=== PATIENT | male | born 1985 | race Caucasian/White ===

== ENCOUNTER 2018-06-09 16:21 | Outpatient (CLI) | payer OTHER ==
--- NOTE | 2018-06-10 10:06 | XRAY Report ---
Reason: R FOOT PAIN X 6 YRS,CENTERED 2ND METATARSAL HEAD Procedure Date: 06/09/2018 Accession Number: [id number] / [id number] Procedure: XR - Foot 3 View RT CPT Code: FULL RESULT: EXAM: RIGHT FOOT RADIOGRAPHY EXAM DATE: 06/09/2018 04:33 PM. CLINICAL HISTORY: Right foot pain x 6 years, centered 2nd metatarsal head. COMPARISON: None. TECHNIQUE: 3 views. FINDINGS: Bones: Normal. No fractures or bone lesions. Joints: Normal. No subluxations. Soft Tissues: Normal. No soft tissue swelling. IMPRESSION: Normal foot radiography. RADIA
== END 2018-06-09 16:22 | disposition home or self-care (01) ==
LOC: DI 16:21
PROVIDERS: ATTEND Podiatrist
DX: M79.671 Pain in right foot (principal)

== ENCOUNTER 2021-04-02 15:29 | Emergency (ER) | payer OTHER ==
--- NOTE | 2021-04-02 16:49 | Ultrasound Report ---
PROCEDURE: Duplex Ext Veins Left INDICATIONS: leg pain TECHNIQUE: Real-time imaging, as well as color and pulse Doppler interrogation, were performed of the lower extr emity deep veins from the inguinal ligament to the popliteal fossa. COMPARISON: None. FINDINGS: The deep veins are normally compressible, and free of intraluminal thrombus. Color and pu lse Doppler demonstrate normal phasic intraluminal flow. There is normal augmentation response to di stal compression maneuver. 2.6 x 0.7 x 3.3 cm sonographically heterogeneous fluid collection noted in the soft tissues anterior and superior to the left knee likely represents hematoma, however infected fluid collection cannot be differentiated by imaging. IMPRESSION: No evidence of deep vein thrombosis involving the left lower extremity. Reviewed by: Suzi Krause MD, PhD on 04/02/2021 4:47 PM PST Approved by: Suzi Krause MD, PhD on 04/02/2021 4:47 PM PST Station ID: [id number]
--- NOTE | 2021-04-02 18:07 | ED Physician Documentation ---
History of Present Illness - Stated complaint Stated Complaint: swollen hot left leg - Chief complaint Chief Complaint: Ext Problem - Additonal information Additional information: 35-year-old male comes to the emergency department for evaluation of acute left knee swelling as well as calf swelling. He reports that about 5 to 7 days ago he began noticing that his left knee had some fluid and swelling around it. Was mildly warm to the touch but not tender. He did follow-up with his primary care doctor they did attempt to do a joint arthrocentesis but were not successful. Over time he has developed some swelling in the lower leg. He denies any knee pain, calf pain, fevers, night sweats, weight loss. No history of DVT or cancer. He does practice jujitsu and is often kneeling though he does not think that that is the cause of the knee swelling denies any trauma. He has a normal gait. Review of Systems Constitutional: denies: Fever, Chills Eyes: reports: Reviewed and negative Ears: reports: Reviewed and negative Throat: reports: Reviewed and negative Cardiac: reports: Reviewed and negative Respiratory: reports: Reviewed and negative GI: reports: Reviewed and negative : reports: Reviewed and negative Skin: reports: Reviewed and negative Musculoskeletal: reports: Joint swelling. denies: Joint pain, Pain with weight bearing Neurologic: reports: Reviewed and negative PD PAST MEDICAL HISTORY - Present Medications Home Medications: Ambulatory Orders Medication Instructions Recorded Confirmed No Known Home Medications 04/02/21 04/02/21 - Allergies Allergies/Adverse Reactions: Allergies Allergy/AdvReac Type Severity Reaction Status Date / Time Penicillins Allergy Hives Verified 04/02/21 15:37 PD ED PE NORMAL - General General: Alert and oriented X 3, No acute distress, Other (No lymphadenopathy appreciated in the inguinal chain. No abdominal tenderness elicited.) - HEENT HEENT: PERRL - Cardiac Cardiac: RRR, No murmur - Abdomen Abdomen: Normal bowel sounds, Soft, Non tender, Non distended - Back Back: No CVA TTP, No spinal TTP - Derm Derm: Normal color, Warm and dry, No rash - Extremities Extremities: No deformity, No tenderness to palpate, Normal ROM s pain, No calf tenderness / cord, Other (Mild swelling of the knee with effusion palpable bilaterally. No laxity. No micromotion tenderness. Normal flexion extension. Patient has a normal gait. 2+ DP pulse.). No: No edema - Neuro Neuro: Alert and oriented X 3 Eye Opening: Spontaneous Motor: Obeys Commands Verbal: Oriented GCS Score: 15 - Psych Psych: Normal mood Results - Vitals Vitals: Vital Signs - 24 hr 04/02/21 04/02/21 15:34 17:49 Temperature 36.4 C L 36.6 C Heart Rate 75 77 Respiratory 16 18 Rate Blood Pressure 151/79 H 133/71 H O2 Saturation 100 99 Oxygen O2 Source Room air - Rads (name of study) US DVT Radiology: Final report received (No acute deep vein thrombosis) left knee Radiology: EMP read contemporaneously (No fracture or dislocation. Minimal joint effusion medially) PD MEDICAL DECISION MAKING - ED course Complexity details: reviewed results, re-evaluated patient, considered differential, d/w patient ED course: 35-year-old male presents the emergency department for evaluation of left leg swelling. Began as swelling in the knee about 1 week ago. No pain or fevers. He did see his primary care doctor and they attempted arthrocentesis. We do not know the results. However since then he has had swelling below the knee into his calf but no calf pain. By Wells criteria he is low risk for DVT. Ultrasound does not show any deep vein thrombus today. Patient is worried about the swelling in his knee. He practices jujitsu and frequently kneels. He denies any known trauma. The exam of the knee is very benign. No laxity or tenderness noted he has a normal gait. Given lack of fevers or micromotion tenderness my suspicion for a septic arthritis is exceedingly low. X-ray was without acute findings. I recommended patient to have close follow-up with his primary care provider. He may benefit from referral to physical therapy and/or orthopedics if the effusion does not improve. I did recommend Harish wrap or knee sleeve. Also recommended Tylenol or ibuprofen. Emergent return precautions were discussed. Departure - Departure Disposition: 01 Home, Self Care Clinical Impression: Swelling of left knee joint, Swelling of left lower extremity Condition: Stable Record reviewed to determine appropriate education?: Yes Instructions: ED Effusion Knee Comments: Brice mancini were seen today in the emergency department for swelling of the knee and left lower leg. The x-ray of the knee does not show any worrisome findings. The ultrasound of your lower extremity did not show any blood clots. I suspect that you have swelling of the knee otherwise known as an effusion from kneeling while practicing [employer]. You would benefit from elevating the leg at night. He may also benefit from a mild compressive wrap such as an Harish wrap or a knee sleeve. I would like you to have close follow-up with your primary care doctor. If the effusion does not resolve over the next week then I would recommend referral to orthopedics and/or referral to physical therapy. If at any point you develop severe knee pain, have any fevers, or red streaking in your legs then please return immediately to the ER for 2nd evaluation.
[2021-04-02 18:38] VITALS: BP 122/70
--- NOTE | 2021-04-02 19:03 | XRAY Report ---
PROCEDURE: Knee 3 View LT INDICATIONS: effusion; no trauma TECHNIQUE: 3 views of the left knee(s) were acquired. COMPARISON: None. FINDINGS: BONES/JOINT: No acute, displaced fracture or dislocation. Small suprapatellar joint effusion. SOFT TISSUES: Diffuse edema. IMPRESSION: 1.No acute osseous abnormality. Reviewed by: Jaya Doll MD on 04/02/2021 7:01 PM [facility] Approved by: Jaya Doll MD on 04/02/2021 7:01 PM PST Station ID: [id number]
== END 2021-04-02 18:38 | disposition home or self-care (01) ==
LOC: ED 15:29
DX: M25.462 Effusion, left knee (principal)
CPT/HCPCS: 99282; 99284

== ENCOUNTER 2022-08-31 08:00 | Outpatient (CLI) | payer OTHER ==
--- NOTE | 2022-09-01 15:53 | XRAY Report ---
PROCEDURE: Hand 3 View LT INDICATIONS: LEFT HAND INJURY TECHNIQUE: 3 views of the hand(s) acquired. COMPARISON: None. FINDINGS: Bones: There is a mildly displaced oblique fracture within the fourth metacarpal shaft. There is sub sequent overall shortening of the fourth digit. Soft tissues: No suspicious soft tissue calcifications or masses. IMPRESSION: Mildly displaced fourth metacarpal shaft fracture. Reviewed by: Danni Calvillo MD on 09/01/2022 3:51 PM PDT Approved by: Danni Calvillo MD on 09/01/2022 3:51 PM PDT Station ID: [id number]
== END 2022-08-31 23:59 | disposition home or self-care (01) ==
LOC: DI.S 08:00
PROVIDERS: ATTEND Registered Nurse
DX: S62.325A Displaced fracture of shaft of fourth metacarpal bone, left hand, initial encounter for closed fracture (principal)

== ENCOUNTER 2022-10-12 08:00 | Outpatient (CLI) | payer OTHER ==
--- NOTE | 2022-10-12 13:32 | XRAY Report ---
PROCEDURE: Finger(s) LT INDICATIONS: LEFT 4TH MC FRACTURE TECHNIQUE: AP hand, 2 views of the 4th finger(s) acquired. COMPARISON: X-ray left hand, 08/31/2022. FINDINGS: Bones: Again noted is mildly displaced oblique fracture of the proximal fourth phalangeal shaft. Ali gnment is stable. No suspicious bony lesions. Soft tissues: No suspicious soft tissue calcifications or masses. IMPRESSION: Mildly displaced oblique fracture of the proximal fourth phalangeal shaft with stable alignment. No v isible bridging callus. Reviewed by: Axel Resendiz MD on 10/12/2022 12:10 PM PDT Approved by: Axel Resendiz MD on 10/12/2022 12:10 PM PDT Station ID: [id number]
== END 2022-10-12 23:59 | disposition home or self-care (01) ==
LOC: DI.WOS 08:00
PROVIDERS: ATTEND Orthopaedic Surgery
DX: S62.615D Displaced fracture of proximal phalanx of left ring finger, subsequent encounter for fracture with routine healing (principal)

== ENCOUNTER 2023-06-07 07:00 | Outpatient (CLI) | payer OTHER | END 2023-06-07 23:59 | disposition home or self-care (01) | LOC: LAB.S 07:00 | PROVIDERS: ATTEND Nurse Practitioner | DX: K13.70 Unspecified lesions of oral mucosa (principal) | CPT/HCPCS: 87070; 87205 ==

== ENCOUNTER 2023-06-28 09:07 | Emergency (ER) | payer OTHER ==
--- NOTE | 2023-06-28 09:51 | ED Physician Documentation ---
PD HPI HEENT - Stated complaint Stated Complaint: LUMP IN MOUTH - Chief complaint Chief Complaint: Heent - History obtained from History obtained from: Patient - Additional information Additional information: Patient is a 37-year-old male presenting for evaluation of a swelling to his mouth that has been present for at least a month. Patient states he has been to the walk-in clinic for this initially when it started. He reports they lanced it with a scalpel and took a culture and started him on clindamycin. He states that it did get better when it was lanced and was drained but then has recurred. He denies any discomfort. He called back to the walk-in clinic when it started to grow in size again and was advised to use an [id number] topical medication which he is unsure of the name of. He states that this did not help at all. He occasionally smokes tobacco but does not regularly use tobacco products. Denies any difficulty with swallowing. No fevers. No abnormal drainage. Denies issues with dentition. Review of Systems Constitutional: denies: Fever Nose: denies: Congestion Throat: denies: Dental pain / toothache, Sore throat PD PAST MEDICAL HISTORY - Past Medical History Past Medical History: No - Past Surgical History Past Surgical History: No - Present Medications Home Medications: Ambulatory Orders Medication Instructions Recorded Confirmed No Known Home Medications 04/02/21 06/28/23 - Allergies Allergies/Adverse Reactions: Allergies Allergy/AdvReac Type Severity Reaction Status Date / Time Penicillins Allergy Hives Verified 06/28/23 09:23 - Social History Does the pt smoke?: No Smoking Status: Never smoker Does the pt drink ETOH?: Yes Does the pt have substance abuse?: Yes Substance Use and Type: Marijuana - Immunizations Immunizations are current?: Yes - POLST Patient has POLST: No PD ED PE NORMAL - General General: Alert and oriented X 3, No acute distress, Well developed/nourished - HEENT HEENT: Atraumatic, Moist mucous membranes - Neck Neck: Supple, no meningeal sign - Respiratory Respiratory: No respiratory distress - Derm Derm: Warm and dry - Neuro Neuro: Normal speech PD ED PE EXPANDED - HEENT HEENT Visual: 1 - swelling (almond size area of cystic like swelling, nontender, no redness) Results - Vitals Vitals: Vital Signs - 24 hr 06/28/23 06/28/23 09:19 09:58 Temperature 36.0 C L Heart Rate 57 L 66 Respiratory 20 14 Rate Blood Pressure 152/82 H 142/84 H O2 Saturation 95 100 Oxygen O2 Source Room air PD Medical Decision Making - ED course ED course: Patient is a 37-year-old male presenting for evaluation of a lesion noted to the buccal mucosa for at least the past month. Patient states it was lanced and drained at the walk-in clinic and cultures which I am able to see here showed mixed oral lynsey.Patient states that has reoccurred. Discussed with Dr. Grewal, [facility], who graciously agrees to see the patient in his office today. Patient is quite agreeable to this and very happy to see a specialist for this. I had otherwise offered to incise and drain the fluid again for another culture but patient is comfortable with going directly to Dr. Allen's office. Departure - Departure Disposition: 01 Home, Self Care Clinical Impression: Lump in mouth Condition: Stable Follow-Up: CHINEDU GREWAL [Physician No Access] - (PLEASE GO DIRECTLY TO DR. GREWAL OFFICE. HE IS EXPECTING YOU TODAY.) Comments: Please go directly to Dr. Chinedu Grewal office. He is expecting you and is a specialist. If for some reason you are not able to see Dr. Allen or having any worsening symptoms please return to the emergency department. Forms: PCP List Discharge Date/Time: 06/28/23 09:58
[2023-06-28 10:03] VITALS: BP 142/84; O2SAT 100
== END 2023-06-28 09:58 | disposition home or self-care (01) ==
LOC: ED 09:07
DX: K13.70 Unspecified lesions of oral mucosa (principal)
CPT/HCPCS: 99282; 99283

== ENCOUNTER 2023-09-25 07:00 | Outpatient (CLI) | payer OTHER ==
--- NOTE | 2023-09-26 22:28 | XRAY Report ---
PROCEDURE: Tib/Fib LT INDICATIONS: STRAIN OF TENDON LOWER LEFT LEG TECHNIQUE: 4 views of the tibia and fibula were acquired. COMPARISON: None. FINDINGS: Bones: No fractures or dislocations. Normal alignment. No suspicious bony lesions. Soft tissues: No suspicious soft tissue calcifications or masses. No radiopaque foreign body. IMPRESSION: No acute bony abnormality. Reviewed by: Agustin Samuel MD on 09/26/2023 10:27 PM PDT Approved by: Agustin Samuel MD on 09/26/2023 10:27 PM PDT Station ID: [id number]
== END 2023-09-25 23:59 | disposition home or self-care (01) ==
LOC: DI.S 07:00
PROVIDERS: ATTEND Emergency Medicine
DX: S86.912A Strain of unspecified muscle(s) and tendon(s) at lower leg level, left leg, initial encounter (principal)